=== PATIENT | male | born 1950 | race Caucasian/White ===

== ENCOUNTER 2016-10-20 11:23 | Emergency (ER) | payer OTHER ==
[~2016-10-20] VITALS: Ht 170.2 cm; Wt 65.3 kg
[2016-10-20 11:21] VITALS: TEMP 36.4; Ht 170.2 cm; Wt 65.3 kg
[2016-10-20 11:27] VITALS: O2SAT 94
[2016-10-20] MEDS ORDERED: MECLIZINE HCL 25 MG TAB PO STA (11:42)
[2016-10-20] MEDS ORDERED: ONDANSETRON INJ 2 MG/ML 2 ML VIAL IV STA (11:42)
[2016-10-20 11:58] LABS: BASO % 0.2 %; BASO ABS # 0.02 K/uL (0-0.2); COMPLETE YES; EOS % 0.7 %; HEMATOCRIT 47.6 % (42-52); IG% 0.2 %; LYMPH ABS # 1.22 K/uL (1.2-3.4); MEAN CELL VOLUME 93.3 fL (80-100); MEAN CORPUSCULAR HEMOGLOBIN 32.4 pg (25-34); MEAN CORPUSCULAR HGB CONC 34.7 g/dl (32-36); MEAN PLATELET VOLUME 9.6 fL (7.4-10.4); MONO % 7.6 %; NEUT % 76.3 %; PLATELET COUNT 201 K/uL (130-400); WHITE BLOOD COUNT 8.12 K/uL (4.8-10.8)
[2016-10-20] MEDS ORDERED: SODIUM CHLORIDE 0.9% 500ML 500 ML IV STA (12:00)
[2016-10-20 12:05] LABS: BUN/CREATININE RATIO 17.4 (10-20); CALCIUM 8.7 mg/dl (8.5-10.1); CREATININE 0.97 mg/dl (0.60-1.40); MAGNESIUM 2.2 mg/dl (1.8-2.4); POTASSIUM 4.1 mmol/L (3.5-5.1); PROTHROMBIN TIME (PATIENT) 10.5 SECONDS (9.0-12.0)
--- NOTE | 2016-10-20 12:07 | DIAGNOSTIC IMAGING REPORT ---
CHEST ONE VIEW PORTABLE CLINICAL HISTORY: dizziness mental status change COMPARISON STUDY: No previous studies for comparison. FINDINGS: Moderate prominence of pulmonary vasculature. Diaphragms smooth but somewhat flattened. Rectal infiltrate right base. Slight blunting right lateral gastric angle. Old fracture right clavicle. Emphysematous change considered moderate with bleb formation pulmonary apices. IMPRESSION: 1. Emphysematous change. 2. Small parenchymal infiltrate right base. 3. Moderate prominence of pulmonary vasculature. Electronically signed by: Baron Camacho M.D. 10/20/2016 12:05 PM Dictated Date/Time: 10/20/2016 12:04 PM
[2016-10-20] MEDS ORDERED: GABA-113 PO (12:12)
[2016-10-20] MEDS ORDERED: LPR50X PO (12:12)
[2016-10-20] MEDS ORDERED: LISI1TAB3 PO (12:12)
[2016-10-20] MEDS ORDERED: NRV/5 PO (12:12)
[2016-10-20 12:15] LABS: ALB/GLOB RATIO 1.1 (0.9-2); CKMB/CK RATIO 4.9 (0-3.0); THYROID STIMULATING HORMONE 0.376 uIu/ml (0.300-4.500)
--- NOTE | 2016-10-20 12:39 | DIAGNOSTIC IMAGING REPORT ---
CT SCAN OF THE BRAIN WITHOUT IV CONTRAST CLINICAL HISTORY: Dizziness. COMPARISON STUDY: No priors. TECHNIQUE: Unenhanced axial CT scan of the brain is performed from the vertex to the skull base. CT DOSE: 800.40 mGycm FINDINGS: Brain parenchyma: There are age-related involutional changes noting mild subcortical and periventricular microangiopathic change. Chronic lacunar infarcts are identified in the left caudate head and the anterior limb of the left internal capsule. There is no hemorrhage, mass effect, or evidence of acute territorial ischemia by CT criteria. Corcoran-white matter is preserved. No extra-axial fluid collection is seen. Ventricles, sulci, cisterns: Prominent secondary to involutional change. Intracranial vasculature: There is atherosclerotic calcification of the cavernous carotid arteries. Calvarium: Unremarkable. Sinuses and mastoids: The visualized paranasal sinuses are clear. The mastoid air cells are well pneumatized. Orbits: The bony orbits are grossly intact. IMPRESSION: There is no hemorrhage, mass effect, or evidence of acute territorial ischemia by CT criteria. Electronically signed by: Junior Woodard M.D. 10/20/2016 12:38 PM Dictated Date/Time: 10/20/2016 12:36 PM
--- NOTE | 2016-10-20 13:19 | EMERGENCY ROOM VISIT NOTE ---
ED Visit Note First contact with patient: 11:27 I have seen and examined this patient with Dominique Smyth and generally agree with the treatment plan as discussed. Current/Historical Medications Scheduled Amlodipine Besylate (Amlodipine Besylate), 5 MG PO DAILY Gabapentin (Neurontin), 300 MG PO DAILY Lisinopril (Zestril), 30 MG PO DAILY Metoprolol Tartrate (Metoprolol Tartrate), 50 MG PO DAILY Allergies Coded Allergies: No Known Allergies (Unverified , 10/20/16) Vital Signs Date Time Temp Pulse Resp B/P Pulse Ox O2 Delivery O2 Flow Rate FiO2 10/20/16 12:48 61 18 144/78 93 Room Air 70 161/95 65 158/84 10/20/16 11:27 94 Room Air 10/20/16 11:21 36.4 61 18 181/100 94 Room Air Laboratory Results 10/20/16 11:35 Red Blood Count 5.10, Mean Corpuscular Volume 93.3, Mean Corpuscular Hemoglobin 32.4, Mean Corpuscular Hemoglobin Concent 34.7, Mean Platelet Volume 9.6, Neutrophils (%) (Auto) 76.3, Lymphocytes (%) (Auto) 15.0, Monocytes (%) (Auto) 7.6, Eosinophils (%) (Auto) 0.7, Basophils (%) (Auto) 0.2, Neutrophils # (Auto) 6.18, Lymphocytes # (Auto) 1.22, Monocytes # (Auto) 0.62, Eosinophils # (Auto) 0.06, Basophils # (Auto) 0.02 10/20/16 11:35 Test 10/20/16 11:35 10/20/16 11:49 10/20/16 12:50 White Blood Count 8.12 K/uL (4.8-10.8) Red Blood Count 5.10 M/uL (4.7-6.1) Hemoglobin 16.5 g/dL (14.0-18.0) Hematocrit 47.6 % (42-52) Mean Corpuscular Volume 93.3 fL (80-100) Mean Corpuscular Hemoglobin 32.4 pg (25-34) Mean Corpuscular Hemoglobin Concent 34.7 g/dl (32-36) Platelet Count 201 K/uL (130-400) Mean Platelet Volume 9.6 fL (7.4-10.4) Neutrophils (%) (Auto) 76.3 % Lymphocytes (%) (Auto) 15.0 % Monocytes (%) (Auto) 7.6 % Eosinophils (%) (Auto) 0.7 % Basophils (%) (Auto) 0.2 % Neutrophils # (Auto) 6.18 K/uL (1.4-6.5) Lymphocytes # (Auto) 1.22 K/uL (1.2-3.4) Monocytes # (Auto) 0.62 K/uL (0.11-0.59) Eosinophils # (Auto) 0.06 K/uL (0-0.5) Basophils # (Auto) 0.02 K/uL (0-0.2) RDW Standard Deviation 43.5 fL (36.4-46.3) RDW Coefficient of Variation 12.7 % (11.5-14.5) Immature Granulocyte % (Auto) 0.2 % Immature Granulocyte # (Auto) 0.02 K/uL (0.00-0.02) Prothrombin Time 10.5 SECONDS (9.0-12.0) Prothromb Time International Ratio 1.0 (0.9-1.1) Activated Partial Thromboplast Time 25.1 SECONDS (21.0-31.0) Partial Thromboplastin Ratio 1.0 Anion Gap 6.0 mmol/L (3-11) Est Creatinine Clear Calc Drug Dose 69.2 ml/min Estimated GFR () 93.9 Estimated GFR (Non- 81.0 BUN/Creatinine Ratio 17.4 (10-20) Calcium Level 8.7 mg/dl (8.5-10.1) Magnesium Level 2.2 mg/dl (1.8-2.4) Total Bilirubin 0.8 mg/dl (0.2-1) Aspartate Amino Transf (AST/SGOT) 22 U/L (15-37) Alanine Aminotransferase (ALT/SGPT) 22 U/L (12-78) Alkaline Phosphatase 64 U/L (45-117) Total Creatine Kinase 89 U/L (39-308) Creatine Kinase MB 4.4 ng/ml (0.5-3.6) Creatine Kinase MB Ratio 4.9 (0-3.0) Total Protein 7.3 gm/dl (6.4-8.2) Albumin 3.8 gm/dl (3.4-5.0) Globulin 3.5 gm/dl (2.5-4.0) Albumin/Globulin Ratio 1.1 (0.9-2) Thyroid Stimulating Hormone (TSH) 0.376 uIu/ml (0.300-4.500) Bedside Troponin I 0.000 ng/ml (0-0.045) Medications Administered Medications (Trade) Dose Ordered Sig/Donna Route Start Time Stop Time Status Last Admin Dose Admin Meclizine HCl (Antivert Tab) 25 mg NOW STAT PO 10/20/16 11:42 10/20/16 11:45 DC 10/20/16 12:16 25 MG Ondansetron HCl 4 mg 4 mg NOW STAT IV 10/20/16 11:42 10/20/16 11:45 DC 10/20/16 12:17 4 MG Sodium Chloride (Nss 500ml) 500 ml @ 999 mls/hr Q31M STAT IV 10/20/16 12:00 10/20/16 12:30 DC 10/20/16 12:17 999 MLS/HR Departure Information Referrals Kristopher Walls M.D. (PCP) Patient Instructions My [facility]
[2016-10-20 13:21] LABS: URINE APPEARANCE CLOUDY (CLEAR); URINE BILIRUBIN NEG (NEG); URINE COLOR YELLOW; URINE EPITHELIAL CELL AUTO >30 /lpf (0-5); URINE NITRITE NEG (NEG); URINE PH 7.5 (4.5-7.5); URINE SPECIFIC GRAVITY 1.018 (1.000-1.030); UROBILINOGEN NEG (NEG); ZZUR CULT IF INDIC CLEAN CATCH NO
[2016-10-20] MEDS ORDERED: MECL1TAB42 PO (13:30)
--- NOTE | 2016-10-20 13:33 | EMERGENCY ROOM VISIT NOTE ---
History First contact with patient: 11:27 Chief Complaint: DIZZY Stated Complaint: DIZZY Nursing Triage Summary: pt was sitting at a conference at the [facility]. pt states he felt like his right ear needed to pop and became really dizzy. pt denies loc, chest pain. pt c/o dizziness and lightheadedness. History of Present Illness The patient is a 65 year old male who presents to the Emergency Room with complaints of a sudden onset of dizziness. The patient states that he was at a conference at a local hotel. He states that his right ear felt like it needed to pop. He popped the air and then had a sudden onset of dizziness. He has been extremely nauseous and has had 5 episodes of vomiting. He states that the room feels like it is spinning. He denies any numbness, tingling, weakness, facial drooping, blurred vision, slurred speech, lightheadedness, chest pain or shortness of breath. He denies any history of vertigo. He has a history of hypertension but states he is otherwise healthy. He denies headache or neck pain. Review of Systems A complete 10 point review of systems was reviewed with the patient with pertinent positives and negatives as per history of present illness. All else were negative. Social History Smoking Status: Current Every Day Smoker Current/Historical Medications Scheduled Amlodipine Besylate (Amlodipine Besylate), 5 MG PO DAILY Gabapentin (Neurontin), 300 MG PO DAILY Lisinopril (Zestril), 30 MG PO DAILY Meclizine Hcl (Meclizine Hcl), 1 TAB PO TID Metoprolol Tartrate (Metoprolol Tartrate), 50 MG PO DAILY Allergies Coded Allergies: No Known Allergies (Unverified , 10/20/16) Physical Exam Vital Signs Date Time Temp Pulse Resp B/P Pulse Ox O2 Delivery O2 Flow Rate FiO2 10/20/16 13:38 64 16 146/81 96 Room Air 10/20/16 12:48 61 18 144/78 93 Room Air 70 161/95 65 158/84 10/20/16 11:27 94 Room Air 10/20/16 11:21 36.4 61 18 181/100 94 Room Air Physical Exam VITALS: Vitals are noted on the nurse's note and reviewed by myself. Vital signs stable. GENERAL: This is a 65-year-old male, in no acute distress, nondiaphoretic, well- developed well-nourished. SKIN: The skin was without rashes. HEAD: Normocephalic atraumatic. EARS: External auditory canals clear, tympanic membranes pearly corcoran without erythema or effusion bilaterally. EYES: Pupils equal round and reactive to light and accommodation. Conjunctivae without injection, sclerae without icterus. Extraocular movements intact. Right-sided lateral nystagmus noted. NOSE: Patent, turbinates without inflammation or discharge. No sinus tenderness. MOUTH: Mucous membranes moist. Tonsils are not enlarged. Pharynx without erythema or exudate. NECK: Supple without nuchal rigidity. No lymphadenopathy. HEART: Regular rate and rhythm without murmurs gallops or rubs. LUNGS: Clear to auscultation bilaterally. Mild expiratory wheezes in lung bases. MUSCULOSKELETAL: Full range of motion throughout. Strength 5/5 throughout. NEURO: Patient was alert and oriented to person place and time. Normal sensation to light and sharp touch. No focal neurological deficits. Normal finger to nose testing. Medical Decision & Procedures ER Provider Diagnostic Interpretation: CT SCAN OF THE BRAIN WITHOUT IV CONTRAST FINDINGS: Brain parenchyma: There are age-related involutional changes noting mild subcortical and periventricular microangiopathic change. Chronic lacunar infarcts are identified in the left caudate head and the anterior limb of the left internal capsule. There is no hemorrhage, mass effect, or evidence of acute territorial ischemia by CT criteria. Corcoran-white matter is preserved. No extra-axial fluid collection is seen. Ventricles, sulci, cisterns: Prominent secondary to involutional change. Intracranial vasculature: There is atherosclerotic calcification of the cavernous carotid arteries. Calvarium: Unremarkable. Sinuses and mastoids: The visualized paranasal sinuses are clear. The mastoid air cells are well pneumatized. Orbits: The bony orbits are grossly intact. IMPRESSION: There is no hemorrhage, mass effect, or evidence of acute territorial ischemia by CT criteria. CHEST ONE VIEW PORTABLE FINDINGS: Moderate prominence of pulmonary vasculature. Diaphragms smooth but somewhat flattened. Rectal infiltrate right base. Slight blunting right lateral gastric angle. Old fracture right clavicle. Emphysematous change considered moderate with bleb formation pulmonary apices. IMPRESSION: 1. Emphysematous change. 2. Small parenchymal infiltrate right base. 3. Moderate prominence of pulmonary vasculature. Laboratory Results 10/20/16 11:35 Red Blood Count 5.10, Mean Corpuscular Volume 93.3, Mean Corpuscular Hemoglobin 32.4, Mean Corpuscular Hemoglobin Concent 34.7, Mean Platelet Volume 9.6, Neutrophils (%) (Auto) 76.3, Lymphocytes (%) (Auto) 15.0, Monocytes (%) (Auto) 7.6, Eosinophils (%) (Auto) 0.7, Basophils (%) (Auto) 0.2, Neutrophils # (Auto) 6.18, Lymphocytes # (Auto) 1.22, Monocytes # (Auto) 0.62, Eosinophils # (Auto) 0.06, Basophils # (Auto) 0.02 10/20/16 11:35 Test 10/20/16 11:35 10/20/16 11:49 10/20/16 12:50 White Blood Count 8.12 K/uL (4.8-10.8) Red Blood Count 5.10 M/uL (4.7-6.1) Hemoglobin 16.5 g/dL (14.0-18.0) Hematocrit 47.6 % (42-52) Mean Corpuscular Volume 93.3 fL (80-100) Mean Corpuscular Hemoglobin 32.4 pg (25-34) Mean Corpuscular Hemoglobin Concent 34.7 g/dl (32-36) Platelet Count 201 K/uL (130-400) Mean Platelet Volume 9.6 fL (7.4-10.4) Neutrophils (%) (Auto) 76.3 % Lymphocytes (%) (Auto) 15.0 % Monocytes (%) (Auto) 7.6 % Eosinophils (%) (Auto) 0.7 % Basophils (%) (Auto) 0.2 % Neutrophils # (Auto) 6.18 K/uL (1.4-6.5) Lymphocytes # (Auto) 1.22 K/uL (1.2-3.4) Monocytes # (Auto) 0.62 K/uL (0.11-0.59) Eosinophils # (Auto) 0.06 K/uL (0-0.5) Basophils # (Auto) 0.02 K/uL (0-0.2) RDW Standard Deviation 43.5 fL (36.4-46.3) RDW Coefficient of Variation 12.7 % (11.5-14.5) Immature Granulocyte % (Auto) 0.2 % Immature Granulocyte # (Auto) 0.02 K/uL (0.00-0.02) Prothrombin Time 10.5 SECONDS (9.0-12.0) Prothromb Time International Ratio 1.0 (0.9-1.1) Activated Partial Thromboplast Time 25.1 SECONDS (21.0-31.0) Partial Thromboplastin Ratio 1.0 Anion Gap 6.0 mmol/L (3-11) Est Creatinine Clear Calc Drug Dose 69.2 ml/min Estimated GFR () 93.9 Estimated GFR (Non- 81.0 BUN/Creatinine Ratio 17.4 (10-20) Calcium Level 8.7 mg/dl (8.5-10.1) Magnesium Level 2.2 mg/dl (1.8-2.4) Total Bilirubin 0.8 mg/dl (0.2-1) Aspartate Amino Transf (AST/SGOT) 22 U/L (15-37) Alanine Aminotransferase (ALT/SGPT) 22 U/L (12-78) Alkaline Phosphatase 64 U/L (45-117) Total Creatine Kinase 89 U/L (39-308) Creatine Kinase MB 4.4 ng/ml (0.5-3.6) Creatine Kinase MB Ratio 4.9 (0-3.0) Total Protein 7.3 gm/dl (6.4-8.2) Albumin 3.8 gm/dl (3.4-5.0) Globulin 3.5 gm/dl (2.5-4.0) Albumin/Globulin Ratio 1.1 (0.9-2) Thyroid Stimulating Hormone (TSH) 0.376 uIu/ml (0.300-4.500) Bedside Troponin I 0.000 ng/ml (0-0.045) Urine Color YELLOW Urine Appearance CLOUDY (CLEAR) Urine pH 7.5 (4.5-7.5) Urine Specific [place] 1.018 (1.000-1.030) Urine Protein NEG (NEG) Urine Glucose (UA) NEG (NEG) Urine Ketones 1+ (NEG) Urine Occult Blood NEG (NEG) Urine Nitrite NEG (NEG) Urine Bilirubin NEG (NEG) Urine Urobilinogen NEG (NEG) Urine Leukocyte Esterase NEG (NEG) Urine WBC (Auto) 1-5 /hpf (0-5) Urine RBC (Auto) 0-4 /hpf (0-4) Urine Hyaline Casts (Auto) 1-5 /lpf (0-5) Urine Epithelial Cells (Auto) >30 /lpf (0-5) Urine Bacteria (Auto) NEG (NEG) Urine Renal Epithelial Cells 0-5 /lpf (0-5) Medications Administered Medications (Trade) Dose Ordered Sig/Donna Route Start Time Stop Time Status Last Admin Dose Admin Meclizine HCl (Antivert Tab) 25 mg NOW STAT PO 10/20/16 11:42 10/20/16 11:45 DC 10/20/16 12:16 25 MG Ondansetron HCl 4 mg 4 mg NOW STAT IV 10/20/16 11:42 10/20/16 11:45 DC 10/20/16 12:17 4 MG Sodium Chloride (Nss 500ml) 500 ml @ 999 mls/hr Q31M STAT IV 10/20/16 12:00 10/20/16 12:30 DC 10/20/16 12:17 999 MLS/HR ECG Rate (beats per minute): 60 Rhythm: normal sinus Findings: other (left ventricular hypertrophy) Comparison ECG Date: no prior available ED Course The patient was evaluated as above. Labs were drawn and IV access was obtained. Patient was medicated with 25 mg meclizine and [address] of the head and chest x-ray were performed and read by radiology as above. Patient was reevaluated and had complete resolution of his symptoms. He was able to walk around the room with no dizziness. Discharge instructions were reviewed with the patient. The patient verbalized understanding of my assessment and treatment plan and was discharged home in good condition. Medical Decision Differential diagnosis includes CVA, labyrinthitis, orthostatic hypotension, malignancy, mass, infection, acute coronary syndrome, among others. The patient is a 65-year-old male who presents today complaining of dizziness. Labs revealed no leukocytosis, anemia, or concerning electrolyte abnormalities. CK-MB slightly elevated but I do not feel this is cardiac given negative troponin and no acute findings on EKG. Urinalysis was not suggestive of infection. CT of the head unremarkable. Chest x-ray showed possible right lower lobe infiltrate but I do not feel the patient's symptoms are caused by pneumonia. He was hypertensive but blood pressure did improve throughout stay. He had complete resolution of symptoms with meclizine and I feel this is likely vertigo secondary to labyrinthitis. He was instructed to follow up with his PCP within 48 hours or return to the ED with worsening symptoms. The patient was independently evaluated by Dr. Briones, ED attending physician , who agreed with my assessment and treatment plan. Based on the patient's presentation and work up, I feel the patient is stable for outpatient treatment. The patient was educated to return to the emergency department for any worsening of their current condition or new/concerning symptoms. He will follow up with his PCP. Impression Primary Impression: Vertigo Departure Information Dispostion Home / Self-Care Condition GOOD Prescriptions Meclizine Hcl (MECLIZINE HCL) 25 Mg Tab 1 TAB PO TID for 5 Days, #15 TABS Prov: Dominique Smyth .OTILIA 10/20/16 Referrals Kristopher Walls M.D. (PCP) Patient Instructions My [facility] Additional Instructions Meclizine up to three times daily as prescribed. Follow up with your primary care provider within 48 hours. Return to the emergency department with worsening symptoms, chest pain, shortness of breath, or any other new/concerning symptoms.
[2016-10-20 13:36] LABS: MANUAL MICROSCOPIC REQUIRED? NO; REVIEW REQ? YES
[2016-10-20 13:38] VITALS: BP 146/81; PULSE 64; O2SAT 96
== END 2016-10-20 13:44 | disposition home or self-care (01) ==
LOC: EDBD 11:23 → C.EDC 11:26
DX: R42 Dizziness and giddiness (principal); R11.2 Nausea with vomiting, unspecified; H55.02 Latent nystagmus; I10 Essential (primary) hypertension; F17.200 Nicotine dependence, unspecified, uncomplicated; Z79.899 Other long term (current) drug therapy